=== PATIENT | female | born 1985 | race Caucasian/White ===

== ENCOUNTER 2016-11-26 10:40 | Emergency (ER) | payer OTHER ==
[~2016-11-26] VITALS: Ht 167.6 cm; Wt 68.0 kg
[2016-11-26 10:51] VITALS: BP 137/62
--- NOTE | 2016-11-26 11:04 | NUR ---
LAB DRAWING BLOOD FROM PT.
--- NOTE | 2016-11-26 11:11 | NUR ---
PATIENT AMBULATED TO BED 6 AT THIS TIME.
--- NOTE | 2016-11-26 11:45 | NUR ---
ULTRASOUND AT BEDSIDE
--- NOTE | 2016-11-26 11:45 | NUR ---
31F BIB SELF C/O RUQ ABDOMINAL "CRAMPING", RADIATES TOWARDS UPPER ABDOMEN, 01/11 X 3 DAYS; PT C/O NAUSEA, BUT DENIES VOMITING AT THIS TIME; ABDOMEN SOFT, NON-TENDER, ACTIVE BOWEL SOUNDS X 4 QUADRANTS; PT A&OX4, PERRLA, BL LUNG SOUNDS CLEAR, RR EVEN/UNLABORED, SKIN IS WARM/DRY/INTACT AT THIS TIME; PT RESTING IN BED W/ HOB ELEVATED AND IN LOWEST POSITION; POSITIONED FOR COMFORT; ER MD MADE AWARE OF STATUS. WILL CONTINUE TO MONITOR.
[2016-11-26] MEDS ORDERED: HYDROcodone/APAP 5/325 MG 1 TAB TAB PO ONE (12:15)
[2016-11-26] MEDS ORDERED: DICYCLOMINE HCL LIQUID 20 MG, ALUMINUM HYD/MAG/SIMETHICONE 30 ML, LIDOCAINE VISCOUS 2% ... PO ONE (12:15)
--- NOTE | 2016-11-26 12:26 | NUR ---
NO IV NEEDED PER ER MD DR. WOODSON; PT RESTING IN BED, VSS, NO ACUTE DISTRESS NOTED AT THIS TIME; WILL CONTINUE TO MONITOR.
[2016-11-26 13:21] VITALS: BP 128/81
--- NOTE | 2016-11-26 13:21 | NUR ---
Patient discharged with v/s stable. Written and verbal after care instructions given and explained. Patient alert, oriented and verbalized understanding of instructions. Ambulatory with steady gait. All questions addressed prior to discharge. ID band removed. Patient advised to follow up with PMD. Rx of ZOFRAN, MOTRIN given. Patient educated on indication of medication including possible reaction and side effects. Opportunity to ask questions provided and answered.
== END 2016-11-26 13:21 | disposition home or self-care (01) ==
LOC: MED 10:40
DX: R10.11 Right upper quadrant pain (principal); R11.0 Nausea; R19.7 Diarrhea, unspecified
CPT/HCPCS: 36415; 76705; 80053; 81001; 83690; 84703; 85025; 87086; 99285; Q0092